=== PATIENT | male | born 1960 | race Caucasian/White ===

== ENCOUNTER 2019-06-15 22:00 | Emergency (ER) | payer BC ==
[~2019-06-15] VITALS: Ht 175.3 cm; Wt 97.5 kg
[2019-06-15] MEDS ORDERED: GLIPIZIDE ER2.5 MG PO (22:31)
[2019-06-15] MEDS ORDERED: METFORMIN HCL1000 MG PO (22:31)
[2019-06-15] MEDS ORDERED: FINASTERIDE5 MG PO (22:31)
[2019-06-15] MEDS ORDERED: LISINOPRIL20 MG PO (22:31)
[2019-06-15] MEDS ORDERED: CIPRO500 MG PO (23:44)
[2019-06-15] MEDS ORDERED: NORCO 5-325 TA1 EACH PO (23:44)
== END 2019-06-16 00:30 | disposition home or self-care (01) ==
LOC: ED 22:00
DX: N39.0 Urinary tract infection, site not specified (principal); I10 Essential (primary) hypertension; E11.9 Type 2 diabetes mellitus without complications; Z87.891 Personal history of nicotine dependence; Z79.899 Other long term (current) drug therapy; Z79.84 Long term (current) use of oral hypoglycemic drugs
CPT/HCPCS: 51798; 81001; 99283

== ENCOUNTER 2021-01-18 08:06 | Emergency (ER) | payer OTHER, BC ==
[~2021-01-18] VITALS: Ht 175.3 cm; Wt 97.5 kg
[~2021-01-18 08:06] MED LIST: CIPRO500 MG PO; FINASTERIDE5 MG PO; GLIPIZIDE ER2.5 MG PO; LISINOPRIL20 MG PO; METFORMIN HCL1000 MG PO; NORCO 5-325 TA1 EACH PO
[2021-01-18] MEDS ORDERED: VITAMIN D3125 MC2 PO (09:31)
[2021-01-18] MEDS ORDERED: ZINC30 M1 PO (09:32)
[2021-01-18] MEDS ORDERED: CEPHALEXIN500 M1 PO (14:15)
[2021-02-07] MEDS ORDERED: ECHINACEA125 MG PO (08:59)
== END 2021-01-18 14:37 | disposition home or self-care (01) ==
LOC: ED 08:06
DX: L03.314 Cellulitis of groin (principal); I10 Essential (primary) hypertension; E11.9 Type 2 diabetes mellitus without complications; Z87.891 Personal history of nicotine dependence; Z79.899 Other long term (current) drug therapy; Z79.84 Long term (current) use of oral hypoglycemic drugs
CPT/HCPCS: 74177; 80053; 81001; 83605; 85025; 87040; 96365; 99284-25; J0696; Q9967

== ENCOUNTER 2021-02-10 05:45 | Day surgery (SDC) | payer OTHER, BC ==
[~2021-02-10] VITALS: Ht 175.3 cm; Wt 98.0 kg
[~2021-02-10 05:45] MED LIST changes: +CEPHALEXIN500 M1 PO; +ECHINACEA125 MG PO; +VITAMIN D3125 MC2 PO; +ZINC30 M1 PO
[2021-02-10] MEDS ORDERED: IBUPROFEN600 MG PO (09:33)
[2021-02-10] MEDS ORDERED: OXYCODON-ACETA1 EAC2 PO (09:34)
[2021-02-10] MEDS ORDERED: ACETAMINOPHEN500 MG PO (09:34)
--- NOTE | 2021-02-10 09:34 | NUR ---
02/10/21 0934 Amarilis Cerda 0912-PATIENT ARRIVED TO PACU ON 6L MASK MASK ORAL AIRWAY IN PLACE NONAROUSABLE TO PAINFUL STIMULI RN HOLDING JAW TO MAINTAIN OPEN. RR EVEN SR. IVF INFUSING. RIGHT GROIN INCISION CDI ICE APPLIED. 0915 GLUCOSE 176 0920-RN DOING JAW THRUST TO MAINTAIN OPEN AIRWAY REMAINS NONAROUSABLE. 6L MASK RR EVEN 0923-PATIENT MAINTAING OWN AIRWAY ABLE TO OPEN ONE ON EYE ON COMMAND. 0928-PATIENT AROUSING TO VERBAL STIMULI FOLLOWING COMMANDS RAISING LEFT HAND TO FACE ORAL AIRWAY REMOVED. 6L MASK RR EVEN 100% PATIENT SHAKES HEAD NO TO PAIN OR NAUSEA.
--- NOTE | 2021-02-10 10:15 | NUR ---
PATIENT BACK TO ROOM FROM PACU. REPORT RECEIVIED FROM ADRY HARPER. PATIENT RATES PAIN 02/01. DENIES NAUEA. VSS. AT BEDSIDE. DRESSING CLEAN, DRY, AND INTACE. PATIENT UP TO BATHROOM WITH 2 RN ASSIST. PATIENT GAIT UNSTEADY AND TOLERATED WELL. PROVIDED PATIENT WITH WATER, APPLESAUCE, AND CRAKCKERS. PAIN MEDICATION GIVEN PER AUG. CALL LIGHT WITHIN REACH.
--- NOTE | 2021-02-10 11:29 | NUR ---
PATIENT RESTING IN BED. AT BEDSIDE. DENIES NAUSEA. PATIENT RATES PAIN 8/10. PATIENT DESCRIBES HIS PAIN STABBING AND THROBBING. PAIN MEDICATION GIVEN PER MAR. VSS. PATIENTS DRESSING IS CLEAN, DRY, AND INTACT. PROVIDED PATIENT WITH JELLO AND MORE WATER. CALL LIGHT WITHIN REACH.
--- NOTE | 2021-02-10 12:05 | NUR ---
PATIENT RESTING COMFORTABLY IN BED. RATES PAIN 5/10. DENIES NAUSEA. VSS. DRESSSING IS INTACT WITH 2 SMALL SPOTS OF RED DRAINAGE. AT BEDSIDE. CALL LIGHT WITHIN REACH.
--- NOTE | 2021-02-10 12:15 | NUR ---
PROVIDED PATIENT WITH DISCHARGE INSTRUCTIONS. PATIENT VERBALIZED UNDERSTANDING AND ALL QUESTIONS WERE ANSWERED. VSS. SOLOMON STATES PAIN IS 5/10. PROVIDED PATIENT WHEELCHAIR RIDE TO FRONT OF HOSPITAL WHERE HIS WAS WAITING WITH CAR.
--- NOTE | 2021-02-14 23:05 | PATH ---
[facility] [address] [place], [place] [address] Signed SPECIMEN(S): A HERNIA SAC SPECIMEN(S): B CORD LIPOMA SPECIMEN SOURCE: A. HERNIA SAC B. CORD LIPOMA CLINICAL HISTORY: Right inguinal hernia FINAL PATHOLOGIC DIAGNOSIS: A. Hernia sac: - Hernia sac. B. Cord lipoma, right inguinal hernia: - Fibroadipose tissue and blood, consistent with features seen in cord lipoma. TWK:kathleen:C2NR MICROSCOPIC EXAMINATION: A. The specimen consists of benign fibrovascular tissue. There are changes compatible with a hernia sac. B. Histologic sections of all submitted blocks are examined by light microscopy. These findings, together with the gross examination, support the pathologic diagnosis. TWK:kathleen GROSS DESCRIPTION: Two specimens are received in two containers, labeled "RT." A. The specimen, labeled "RT, A," and designated on the requisition "right indirect hernia sac, right inguinal," is received in formalin and consists of membranous adipose tissue fragment measuring 5.3 x 2.5 x 0.9 cm. Cut surface is unremarkable and retention representative sections are submitted in cassette A1. B. The specimen, labeled "RT, B," and designated on the requisition "cord lipoma, right inguinal hernia," is received in formalin and consists of membranous adipose tissue fragments measuring 11.0 x 10.8 x 3.0 cm in aggregate. Cut surface is unremarkable and partially homogenous. Autom[employer] Product Engineer sections are submitted in cassette (B1-B2). AT (under the direct supervision of a pathologist) The Gross Description was prepared using a voice recognition system. The report was reviewed for accuracy; however, sound-alike word errors, addition and/or deletions may occur. If there is any PATIENT NAME: JIMMY ZHU PATHOLOGY DATE OF : 56 REPORT #: [id number] PHYSICIAN: APOORVA SHARMA PCP: JESSICA NAVAS MD REPORT IS CONFIDENTIAL AND NOT TO BE RELEASED WITHOUT AUTHORIZATION [facility] [address] [facility] [place], [place] [address] Signed question about this report, please contact Client Services. PERFORMING LABORATORY: The technical component was performed by [facility], [address] [place] [address] (Management Professional: Shelbie Pimentel MD; CLIA# [id number]). The professional interpretation was performed by [facility], [facility] [address] [place] [address]. Diagnostician: Alberto Nova MD Pathologist Electronically Signed 02/14/2021 Copies: ~ PATIENT NAME: JIMMY ZHU PATHOLOGY DATE OF : 56 REPORT #: [id number] PHYSICIAN: APOORVA SHARMA PCP: JESSICA NAVAS MD REPORT IS CONFIDENTIAL AND NOT TO BE RELEASED WITHOUT AUTHORIZATION
--- NOTE | 2021-02-16 13:17 | OR ---
[facility] [address] [place], [place] [address] Signed DATE OF OPERATION: 02/10/2021 SURGEON: Jayjay Thornton MD PREOPERATIVE DIAGNOSES: 1. Symptomatic right inguinal hernia. 2. Obesity. POSTOPERATIVE DIAGNOSES: 1. Right inguinal hernia, indirect and direct. 2. Giant right cord lipoma. PROCEDURES: 1. Repair of right inguinal hernia including ligation excision of indirect sac and implantation of Prolene mesh underlay technique. 2. Excision of giant cord lipoma. ANESTHESIA: General endotracheal, Jayjay June CRNA and local 20 mL of 0.25% Marcaine with epinephrine. INDICATION: This 60-year-old white man is referred by Dr. John Hoskins for persistent and recurring pain in the right groin area. His evaluation included emergency room visit on January 18 at which time he was noted to have swelling of the right groin and a CT scan of the abdomen and pelvis showed urinary bladder microcalcification near the ureteral orifice, but no ureteral dilation. There is fat stranding within the right inguinal hernia region and adjacent skin thickening suggestive of possible cellulitis though clinically that was unlikely. Additionally noted was a fat containing inguinal hernia of the right side. The patient works at the [employer] but does not do heavy lifting otherwise. He is obese and has a history of bladder cancer in 2013, but no urinary outlet obstructive symptoms currently. He is admitted at this time to undergo repair of the right inguinal hernia. Understanding the risks of bleeding, infection, recurrence, and other unforeseen complications. FINDINGS: Indeed, there was an indirect hernia, which was relatively small and a larger direct hernia. Additionally, there was a sizable cord lipoma which was excised also. Electronically Signed By: JAYJAY THORNTON MD 02/16/21 1317 PATIENT NAME: JIMMY ZHU OPERATIVE REPORT DATE OF : 56 REPORT #: [id number] PHYSICIAN: JAYJAY THORNTON MD PCP: JOHN HOSKINS MD REPORT IS CONFIDENTIAL AND NOT TO BE RELEASED WITHOUT AUTHORIZATION [facility] [address] [place], [place] [address] Signed DESCRIPTION OF PROCEDURE: The patient was brought to the operating room, given a general endotracheal anesthetic. Preoperative antibiotic Ancef was given. Sequential compression device stockings were used. The lower abdomen was clipped and prepared with a chlorhexidine solution and draped sterilely. A curvilinear incision was made in the right lower abdomen along the line of skin tension. Dissection was carried through the subcutaneous tissue with blunt and electrocautery dissection. A bulky herniated area associated with the cord was noted. The external oblique fascia was incised revealing the underlying cord more fully. A bulky cord consistent with indirect hernia was noted. Further dissection allowed for encirclement of the cord with a Ivel drain. The floor showed a direct hernia. Further dissection in the region of the cord showed an indirect hernia sac. Additionally was a rather sizable and relatively well-defined lipoma of the cord. Lipoma of the cord was secured at the base with hemostats and the vascular supply ligated and the lipomatous tissue passed for pathology. Special care was taken in dissection of the lipoma from the cord to avoid any compromise to cord vascularity. Further dissection of medial aspect showed an indirect hernia sac, this was dissected free from the cord, ultimately opened and found to have no sign of hollow viscus. The neck of the sac was secured with a running 2-0 silk suture, redundant hernia sac amputated and passed for pathology. The Allis clamps applied to the tendon of the transversus abdominis, attenuated fibers of the fascia transversalis were incised with electrocautery and blunt dissection was used to well define the properitoneal space. A segment of Prolene mesh was cut to an elliptical configuration and secured in an underlay technique with interrupted 2-0 Prolene sutures. Care was taken for secure attachment to the shelving edge of Poupart's ligament. A defect was cut in the graft to accommodate the cord and the tails of the graft were secured laterally. There was no excessive tightening around the cord structure itself, but it did allow for admission of the tip of the forceps. A 20 mL of 0.25% Marcaine with epinephrine was injected locally. The external oblique was reapproximated with running 2-0 Vicryl suture. Alexander layer was reapproximated with interrupted 3-0 Vicryl and skin closed with running subcuticular 3-0 Vicryl. Steri-Strips were applied as was an Acticoat silver sponge dressing. The patient tolerated procedure well. BLOOD LOSS: Minimal. COMPLICATIONS: None. Electronically Signed By: JAYJAY THORNTON MD 02/16/21 1317 PATIENT NAME: JIMMY ZHU OPERATIVE REPORT DATE OF : 56 REPORT #: [id number] PHYSICIAN: JAYJAY THORNTON MD PCP: JOHN HOSKINS MD REPORT IS CONFIDENTIAL AND NOT TO BE RELEASED WITHOUT AUTHORIZATION [address] [address] Signed Jayjay Thornton MD JM/MODL /[id number] cc: MD Jayjay Gay MD Copies: JOHN HOSKINS MD ~ Electronically Signed By: JAYJAY THORNTON MD 02/16/21 1317 PATIENT NAME: JIMMY ZHU OPERATIVE REPORT DATE OF : 56 REPORT #: [id number] PHYSICIAN: JAYJAY THORNTON MD PCP: JOHN HOSKINS MD REPORT IS CONFIDENTIAL AND NOT TO BE RELEASED WITHOUT AUTHORIZATION
== END 2021-02-10 12:15 | disposition home or self-care (01) ==
LOC: DS 05:45
PROVIDERS: ATTEND Surgery
PROC: 0VBF0ZZ Excision of Right Spermatic Cord, Open Approach (ICD-10-PCS; 2021-02-10)
PROC: 0YQ50ZZ Repair Right Inguinal Region, Open Approach (ICD-10-PCS; principal; 2021-02-10 06:45)
DX: K40.90 Unilateral inguinal hernia, without obstruction or gangrene, not specified as recurrent (principal); D17.6 Benign lipomatous neoplasm of spermatic cord; I10 Essential (primary) hypertension; E66.9 Obesity, unspecified; Z68.32 Body mass index [BMI] 32.0-32.9, adult; Z20.822 Contact with and (suspected) exposure to COVID-19
CPT/HCPCS: 00830; C1781; J0330; J0690; J1100; J1644; J1885; J2250; J2405; J2704; J2765; J3010; J7121